=== PATIENT | male | born 1970 | race Two or more races ===

== ENCOUNTER 2023-06-15 07:00 | Emergency (ER) | payer BC ==
[~2023-06-15] VITALS: Ht 165.1 cm; Wt 80.3 kg
[2023-06-15 08:12] VITALS: BP 138/84; PULSE 70; RESP 18; TEMP 97.3; O2SAT 97
[2023-06-15 09:32] LABS: COVID19 ANTIGEN SOFIA FIA NEGATIVE (NEGATIVE)
[2023-06-15 09:33] LABS: Rapid Influenza A Negative (Negative); Rapid Influenza B Negative (Negative)
[2023-06-15] MEDS ORDERED: LORA10CA PO (09:44)
[2023-06-15] MEDS ORDERED: BENZ100C97 PO (09:44)
[2023-06-15] MEDS ORDERED: ACET500T58 PO (09:44)
== END 2023-06-15 09:44 | disposition home or self-care (01) ==
LOC: ER 07:00
DX: J06.9 Acute upper respiratory infection, unspecified (principal); B97.89 Other viral agents as the cause of diseases classified elsewhere; R07.89 Other chest pain; Z20.822 Contact with and (suspected) exposure to COVID-19
CPT/HCPCS: 36415; 71046; 87426; 87804

== ENCOUNTER 2024-02-23 05:37 | Emergency (ER) | payer BC, OTHER ==
[~2024-02-23] VITALS: Ht 165.1 cm; Wt 84.3 kg
[~2024-02-23 05:37] MED LIST: ACET500T58 PO; BENZ100C97 PO; LORA10CA PO
[2024-02-23] MEDS: MORPHINE SULFATE INJ 2 MG/ml SYRG IM ONE (08:19)
[2024-02-23] MEDS ORDERED: LIDO5DIS21 TOP (08:50)
[2024-02-23] MEDS ORDERED: NAPR-746 PO (08:50)
[2024-02-23 08:52] VITALS: BP 130/85; PULSE 60; RESP 18; TEMP 98.3; O2SAT 98
== END 2024-02-23 08:59 | disposition home or self-care (01) ==
LOC: ER 05:37
DX: M54.59 Other low back pain (principal); M79.632 Pain in left forearm; R10.9 Unspecified abdominal pain; Z79.899 Other long term (current) drug therapy; Z88.8 Allergy status to other drugs, medicaments and biological substances; Z79.1 Long term (current) use of non-steroidal anti-inflammatories (NSAID); V89.2XXA Person injured in unspecified motor-vehicle accident, traffic, initial encounter; Y93.89 Activity, other specified; Y92.89 Other specified places as the place of occurrence of the external cause; Y99.8 Other external cause status
CPT/HCPCS: 71045; 72100; 73090; 74176; 96372; 99285; J2270

== ENCOUNTER 2024-08-16 20:14 | Emergency (ER) | payer BC, OTHER ==
[2024-08-16 20:14] VITALS: BP 146/87; PULSE 73; RESP 20; O2SAT 98
[~2024-08-16 20:14] MED LIST changes: +LIDO5DIS21 TOP; +NAPR-746 PO
--- NOTE | 2024-08-16 20:52 | ED.PDOC ---
History of Present Illness HPI Comments This is a 54-year-old male who comes in with chief complaint of cough and congestion times approximately one week. The patient also states that the cough is somewhat productive with green sputum. Today the patient was feeling some tightness in his chest when he takes a deep breath. He denies any fever but is having some chills. Chief Complaint: Flu like Time Seen by MD: 20:42 Reviewed Notes: Nurses Notes, Medications, Allergies (Allergies listed above) Allergies: Coded Allergies: Cephalexin (Verified Allergy, Unknown, 06/15/23) Penicillins (Verified Allergy, Unknown, 08/16/24) Home Meds Active Scripts Azithromycin (Zithromax) 500 Mg Tab, 1 TAB PO DAILY, #5 TAB Prov:EVARISTO WEN MD 08/16/24 Lidocaine (LIDODERM 5% TOPICAL PATCH) 1 Patch Ph, 1 PATCH TOP DAILY for 30 Days, #30 PATCH 0 Refills Prov:RICO WEISS CONTINUOUS MINING MACHINE OPERATOR 02/23/24 Naproxen (Naproxen) 500 Mg Tab, 500 MG PO BIDPC for 10 Days, #20 TAB 0 Refills Prov:RICO WEISS CONTINUOUS MINING MACHINE OPERATOR 02/23/24 Acetaminophen (Acetaminophen) 500 Mg Tab, 500 MG PO Q4HP PRN, #30 TAB Prov:STEPHANIE TYSON PAC 06/15/23 Benzonatate (Benzonatate) 100 Mg Cap, 1 CAP PO TID, #20 CAP Prov:STEPHANIE TYSON PAC 06/15/23 Loratadine (Claritin) 10 Mg Cap, 10 MG PO DAILY for 14 Days, #14 CAP Prov:STEPHANIE TYSON PAC 06/15/23 Information Source: Patient Mode of Arrival: Ambulatory Severity: Moderate Timing: Days Duration: Since onset Prehospital treatment: None Associated signs and symptoms No nausea, vomiting or diarrhea but the patient was having a cough and congestion Past Medical History PAST MEDICAL HISTORY: Denies Surgical History (Other): Right shoulder surgery, right knee surgery, right carpal tunnel surgery Family History Family History: Family hx of DM, Family hx of heart mary, Family hx of HTN Social History Smoker: Non-Smoker Alcohol: Occasionally Drugs: Marijuana Lives In: Home Constitutional: denies: chills, diaphoresis, fatigue, fever, malaise, sweats, weakness, others EENTM: reports: others (Congestion); denies: blurred vision, double vision, ear bleeding, ear discharge, ear drainage, ear pain, ear ringing, eye pain, eye redness, hearing loss, mouth pain, mouth swelling, nasal discharge, nose bleeding, nose congestion, nose pain, photophobia, tearing, throat pain, throat swelling, voice changes Respiratory: reports: cough; denies: hemoptysis, orthopnea, SOB at rest, shortness of breath, SOB with excertion, stridor, wheezing, others Cardiovascular: denies: chest pain, dizzy spells, diaphoresis, Dyspnea on exertion, edema, irregular heart beat, left arm pain, lightheadedness, palpitations, PND, syncope, others Gastrointestinal: denies: abdomen distended, abdominal pain, blood streaked bowels, constipated, diarrhea, dysphagia, difficulty swallowing, hematemesis, melena, nausea, poor appetite, poor fluid intake, rectal bleeding, rectal pain, vomiting, others Genitourinary: denies: burning, dysuria, flank pain, frequency, hematuria, incontinence, penile discharge, penile sore, pain, testicle pain, testicle swelling, urgency, others Neurological: denies: dizziness, fainting, headache, left sided numbness, left sided weakness, numbness, paresthesia, pre-existing deficit, right sided numbness, right sided weakness, seizure, speech problems, tingling, tremors, weakness, others Musculoskeletal: denies: back pain, gout, joint pain, joint swelling, muscle pain, muscle stiffness, neck pain, others Integumetry: denies: bruises, change in color, change in hair/nails, dryness, laceration, lesions, lumps, rash, wounds, others Allergic/Immunocompromised: denies: Difficulty Healing, Frequent Infections, Hi ves, Itching, others Hematologic/Lymphatic: denies: anemia, blood clots, easy bleeding, easy bruising, swollen glands, others Endocrine: denies: excessive hunger, excessive sweating, excessive thirst, excessive urination, flushing, intolerance to cold, intolerance to heat, unexplained weight gain, unexplained weight loss, others Psychiatric: denies: anxiety, bipolar disorder, depression, hopeless, panic disorder, schizophrenia, sleepless, suicidal, others Physical Exam General Appearance: No Apparent Distress HEENT: Normal ENT Inspection, Pharynx Normal, TMs Normal Neck: Full Range of Motion, Non-Tender, Normal, Normal Inspection Respiratory: Chest Non-Tender, Lungs Clear, No Accessory Muscle Use, No Respiratory Distress, Normal Breath Sounds Cardiovascular: No Edema, No JVD, No Murmur, No Gallop, Normal Peripheral Pulses, Regular Rate/Rhythm Breast Exam: Deferred Gastrointestinal: No Organomegaly, Non Tender, No Pulsatile Mass, Normal Bowel Sounds, Soft Genitalia: Deferred Pelvic: Deferred Rectal: Deferred Extremities: No calf tenderness, Normal capillary refill, Normal inspection, Normal range of motion, Non-tender, No pedal edema Musculoskeletal : Apperance: Normal Neurologic: Alert, retail receiving clerk II-XII nml as Tested, No Motor Deficits, Normal Affect, Normal Mood, No Sensory Deficits Cerebellar Function: Normal Reflexes: Normal Skin: Dry, Normal Color, Warm Lymphatic: No Adenopathy Was a procedure done? Was a procedure done?: No Differential Dx Considerations may include: Bronchitis, pneumonia, influenza, COVID X-Ray, Labs, Meds, VS Vital Signs Date Time Temp Pulse Resp B/P (MAP) Pulse Ox O2 Delivery O2 Flow Rate FiO2 08/16/24 20:14 98.7 73 20 146/87 (106) 98 Lab Test 08/16/24 20:56 Range/Units Influenza Type A Antigen Negative Negative Influenza Type B Antigen Negative Negative SARS-CoV-2 Antigen (Rapid) Negative NEGATIVE The chest x-ray shows peribronchial cuffing The COVID test as well as influenza a and influenza B are negative The patient was being discharged on Zithromax Images Reviewed?: Images reviewed and evaluated by me Time of 1ST Reevaluation: 20:52 Reevaluation 1ST: Improved Patient Education/Counseling: Diagnosis, Treatment, Prognosis, Need For Follow Up Family Education/Counseling: No Family Present Departure 1 Departure Time of Disposition: 21:53 Impression: Primary Impression: Acute bronchitis Qualified Codes: J20.9 - Acute bronchitis, unspecified Disposition: HOME / SELF CARE / HOMELESS Condition: Fair e-Prescriptions Azithromycin (Zithromax) 500 Mg Tab 1 TAB PO DAILY, #5 TAB Prov: EVARISTO WEN MD 08/16/24 Discharged With: Self Critical Care Note Critical Care Time?: No Stability Stability form required: No Heart Score Heart Score: Heart Score Response (Comments) Value History N/A 0 EKG N/A 0 Age N/A 0 Risk Factors N/A 0 Troponin N/A 0 Total 0 EVARISTO WEN MD Aug 16, 2024 20:52
--- NOTE | 2024-08-16 21:11 | DVH ---
EXAM: XY CHEST TWO VIEWS ROUTINE CLINICAL HISTORY: cough TECHNIQUE: Frontal and lateral views of the chest WID: COMPARISON: XY CHEST TWO VIEWS ROUTINE on DOS: 06/15/23 FINDINGS: Lines and tubes: None Chest: The heart size and pulmonary vasculature is within normal limits. No pleural effusion, pneumothorax, or consolidation. The osseous structures are grossly intact. Multilevel thoracic spondylosis. IMPRESSION: No acute cardiopulmonary abnormality.
[2024-08-16 21:30] LABS: COVID19 ANTIGEN SOFIA FIA NEGATIVE (NEGATIVE); Rapid Influenza A Negative (Negative); Rapid Influenza B Negative (Negative)
[2024-08-16] MEDS ORDERED: AZIT500T PO (21:54)
== END 2024-08-16 23:51 | disposition home or self-care (01) ==
LOC: ER 20:14
DX: J20.9 Acute bronchitis, unspecified (principal); F12.90 Cannabis use, unspecified, uncomplicated; Z88.0 Allergy status to penicillin; Z88.1 Allergy status to other antibiotic agents; Z79.899 Other long term (current) drug therapy; Z98.890 Other specified postprocedural states; Z20.822 Contact with and (suspected) exposure to COVID-19
CPT/HCPCS: 36415; 71046; 87426; 87804

== ENCOUNTER 2024-11-03 19:38 | Inpatient (IN) | payer BC ==
[~2024-11-03] VITALS: Ht 165.1 cm; Wt 75.7 kg
[~2024-11-03 19:38] MED LIST changes: +AZIT500T PO
--- NOTE | 2024-11-03 20:19 | ED.PDOC ---
General HPI Comments 54-year-old male came to ER due to urinary issues. Patient states he has been having difficulty urinating/ voiding since yesterday. Noted to have dysuria, urinary dribbling, urinary frequency and suprapubic pain. Denies any fever, nausea, vomiting or gross hematuria Chief Complaint: Urinary Time Seen by MD: 20:18 Reviewed notes: Nurses Notes Allergies: Coded Allergies: Cephalexin (Verified Allergy, Unknown, 06/15/23) Penicillins (Verified Allergy, Unknown, 08/16/24) Home Meds Active Scripts Azithromycin (Zithromax) 500 Mg Tab, 1 TAB PO DAILY, #5 TAB Prov:EVARISTO WEN MD 08/16/24 Lidocaine (LIDODERM 5% TOPICAL PATCH) 1 Patch Ph, 1 PATCH TOP DAILY for 30 Days, #30 PATCH 0 Refills Prov:RICO WEISS NP 02/23/24 Naproxen (Naproxen) 500 Mg Tab, 500 MG PO BIDPC for 10 Days, #20 TAB 0 Refills Prov:RICO WEISS NP 02/23/24 Acetaminophen (Acetaminophen) 500 Mg Tab, 500 MG PO Q4HP PRN, #30 TAB Prov:STEPHANIE TYSON PAC 06/15/23 Benzonatate (Benzonatate) 100 Mg Cap, 1 CAP PO TID, #20 CAP Prov:STEPHANIE TYSON PAC 06/15/23 Loratadine (Claritin) 10 Mg Cap, 10 MG PO DAILY for 14 Days, #14 CAP Prov:STEPHANIE TYSON PAC 06/15/23 Information Source: Patient Mode of Arrival: Ambulatory Severity: Moderate Inability to void: Moderate Timing: Days Duration: Since onset Symptoms: Dysuria, Inability to void Location: Suprapubic associated signs and symptoms: Abdominal Pain, Dysuria, Frequency, Inability to Void Past Medical History PAST MEDICAL HISTORY: Denies Surgical History: Denies all surgeries Family History Family History: Family hx of DM, Family hx of heart mary, Family hx of HTN Social History Smoker: Non-Smoker Alcohol: Occasionally Drugs: Marijuana Lives In: Home Constitutional: denies: chills, diaphoresis, fatigue, fever, malaise, sweats, weakness, others EENTM: denies: blurred vision, double vision, ear bleeding, ear discharge, ear drainage, ear pain, ear ringing, eye pain, eye redness, hearing loss, mouth pain, mouth swelling, nasal discharge, nose bleeding, nose congestion, nose pain, photophobia, tearing, throat pain, throat swelling, voice changes, others Respiratory: denies: cough, hemoptysis, orthopnea, SOB at rest, shortness of breath, SOB with excertion, stridor, wheezing, others Cardiovascular: denies: chest pain, dizzy spells, diaphoresis, Dyspnea on exertion, edema, irregular heart beat, left arm pain, lightheadedness, palpitations, PND, syncope, others Gastrointestinal: reports: abdominal pain; denies: abdomen distended, blood streaked bowels, constipated, diarrhea, dysphagia, difficulty swallowing, hematemesis, melena, nausea, poor appetite, poor fluid intake, rectal bleeding, rectal pain, vomiting, others Genitourinary: reports: burning, dysuria, frequency, incontinence; denies: flank pain, hematuria, penile discharge, penile sore, pain, testicle pain, testicle swelling, urgency, others Neurological: denies: dizziness, fainting, headache, left sided numbness, left sided weakness, numbness, paresthesia, pre-existing deficit, right sided numbness, right sided weakness, seizure, speech problems, tingling, tremors, weakness, others Musculoskeletal: denies: back pain, gout, joint pain, joint swelling, muscle pain, muscle stiffness, neck pain, others Integumetry: denies: bruises, change in color, change in hair/nails, dryness, laceration, lesions, lumps, rash, wounds, others Allergic/Immunocompromised: denies: Difficulty Healing, Frequent Infections, Hives, Itching, others Hematologic/Lymphatic: denies: anemia, blood clots, easy bleeding, easy bruising, swollen glands, others Endocrine: denies: excessive hunger, excessive sweating, excessive thirst, excessive urination, flushing, intolerance to cold, intolerance to heat, u nexplained weight gain, unexplained weight loss, others Psychiatric: denies: anxiety, bipolar disorder, depression, hopeless, panic disorder, schizophrenia, sleepless, suicidal, others Physical Exam General Appearance: No Apparent Distress, Normal HEENT: Normal ENT Inspection, Pharynx Normal, TMs Normal Neck: Full Range of Motion, Non-Tender, Normal, Normal Inspection Respiratory: Chest Non-Tender, Lungs Clear, No Accessory Muscle Use, No Respiratory Distress, Normal Breath Sounds Cardiovascular: No Edema, No JVD, No Murmur, No Gallop, Normal Peripheral Pulses, Regular Rate/Rhythm Breast Exam: Deferred Gastrointestinal: No Organomegaly, No Pulsatile Mass, Normal Bowel Sounds, Soft, Suprapubic, Tenderness Genitalia: Deferred Pelvic: Deferred Rectal: Deferred Extremities: No calf tenderness, Normal capillary refill, Normal inspection, Normal range of motion, Non-tender, No pedal edema Musculoskeletal : Apperance: Normal Neurologic: Alert, coin purse assembler II-XII nml as Tested, No Motor Deficits, Normal Affect, Normal Mood, No Sensory Deficits Cerebellar Function: Normal Reflexes: Normal Skin: Dry, Normal Color, Warm Lymphatic: No Adenopathy Was a procedure done? Was a procedure done?: No Differential Diagnosis Kidney stone (Female): N/A Kidney stone (Male): Pyelonephritis, Renal failure, Strain, Urinary obstruction, Urolithiasis, Renal infarction, Urinary tract infection Penile/Scrotal: Urolithiasis, Urinary Retention Urinary Problem (Male): Bladder Outlet, Bladder Obstruction, Epididymitis, Prostatitis, Plelonephritis, Renal Failure, Urethritis, Urinary Retention, Urolithiasis, UTI X-Ray, Labs, Meds, VS Vital Signs Date Time Temp Pulse Resp B/P (MAP) Pulse Ox O2 Delivery O2 Flow Rate FiO2 11/03/24 21:56 99.3 98 20 136/85 (102) 99 99.3 11/03/24 20:22 99.3 98 20 136/85 (102) 99 99.3 Lab Test 11/03/24 22:13 11/03/24 21:43 11/03/24 20:20 Range/Units Troponin I High Sensitivity 5 </=54 ng/L White Blood Count 31.8 *H 4.4-10.8 10^3/uL Red Blood Count 4.65 4.5-5.90 10^6/uL Hemoglobin 14.8 13.5-17.5 g/dL Hematocrit 42.8 41.0-53.0 % Mean Corpuscular Volume 91.9 80.0-100.0 fL Mean Corpuscular Hemoglobin 31.7 28.0-32.0 pg Mean Corpuscular Hemoglobin Concent 34.5 32.0-36.0 g/dL Red Cell Distribution Width 13.8 11.8-14.3 % Platelet Count 265 140-450 10^3/uL Mean Platelet Volume 7.9 6.9-10.8 fL Neutrophils (%) (Auto) 37.0-80.0 % Lymphocytes (%) (Auto) 10.0-50.0 % Monocytes (%) (Auto) 0.0-12.0 % Basophils (%) (Auto) 0.0-2.0 % Neutrophils # (Auto) 1.6-8.6 10 ^3/uL Lymphocytes # (Auto) 0.4-5.4 10 ^3/uL Monocytes # (Auto) 0-1.3 10 ^3/uL Differential Total Cells Counted 100.0 100 Neutrophils % (Manual) 83 H 37.0-80.0 Band Neutrophils % (Manual) 8 Lymphocytes % (Manual) 9 L 10.0-50.0 Monocytes % (Manual) 0 0-12 Eosinophils % (Manual) 0 0-7 Basophils % (Manual) 0 0.0-2.0 Metamyelocytes % (manual) 0 Myelocytes % (Manual) 0 Promyelocytes % (Manual) 0 Blast Cells % (Manual) 0 Reactive Lymphocytes 0 Platelet Estimate Adequate Sodium Level 134 L 136-145 mmol/L Potassium Level 3.4 L 3.5-5.1 mmol/L Chloride Level 102 98-107 mmol/L Carbon Dioxide Level 25 20-31 mmol/L Anion Gap 7 5-15 Blood Urea Nitrogen 10 9-23 mg/dL Creatinine 1.03 0.700-1.30 mg/dL Glomerular Filtration Rate Calc 86 >90 mL/min BUN/Creatinine Ratio 9.7 L 10.0-20.0 Serum Glucose 148 H 74-106 mg/dL Calcium Level 10.4 8.7-10.4 mg/dL Urine Color Light-orange Yellow Urine Clarity Turbid H Clear Urine pH 5.5 5.0-9.0 Urine Specific Elizabeth 1.030 1.001-1.035 Urine Protein 1+ H Negative Urine Ketones Trace Negative Urine Blood 1+ H Negative /uL Urine Nitrite Negative Negative Urine Bilirubin Negative Negative Urine Urobilinogen 2 H Negative mg/dL Urine Leukocyte Esterase 3+ Negative /uL Urine RBC 24 0 - 3 /hpf Urine Microscopic WBC 638 H 0-3 /HPF Urine Squamous Epithelial Cells Few <5 /hpf Urine Bacteria Few H None Seen /hpf Urine Mucus Few None Seen Urine Yeast (Budding) Occasional None Seen /hpf Urine Glucose Normal Normal mg/dL Current Medications Medications (Trade) Dose Ordered Sig/Juma Route Start Time Stop Time Status Last Admin Sodium Chloride 1,850 ml @ 1,850 mls/hr ONCE ONCE IV 11/03/24 22:15 11/03/24 23:14 DC 11/03/24 22:49 Time of 1ST Reevaluation: 20:14 Reevaluation 1ST: Unchanged Time of 2ND Reevaluation: 21:22 Reevaluation 2ND: Unchanged Patient Education/Counseling: Diagnosis, Treatment, Prognosis, Need For Follow Up Family Education/Counseling: Prognosis, Need For Follow Up, No Family Present Additional Information Previous medical encounters reviewed: er visits 2022, 2023, 2024 The following tests were ordered, and results were reviewed by me: chem, cbc, ua Additional Information was gathered from interviewing the following independent historians: I discussed treatment and results with medical personnel and: Patient and Comprehensive systems review obtained and negative except for what is stated in the HPI. pt does have cystitis, but is not retaining urine. brown will be dc'd. i will order labs to look for evidence of leukocytosis and renal failure pt has evidence of uti with sepsis. he will be admitted for antibiotic and further evaluation Sepsis Sepsis Reasesment Focused Exam Sepsis focused exam: focus exam completed (good skin turgor, cap refill<2 secs, no hypotension), time: (2308) Departure 1 Departure Time of Disposition: 23:09 Impression: Primary Impression: UTI (urinary tract infection) Qualified Codes: N30.01 - Acute cystitis with hematuria Additional Impression: Sepsis Qualified Codes: A41.9 - Sepsis, unspecified organism Disposition: ADMITTED INPATIENT Admit to: Med Surg Condition: Stable Discharged With: Self, Relative Critical Care Note Critical Care Time?: Yes (55 min-critical care time only) Critical care comment: Due to concerns for patients condition deteriorating, the care required my highest level of attention and readiness to intervene. I assessed the patient, reviewed the medical records, ordered the appropriate tests and treatments, then reassessed for results and responsiveness. I communicated with medical personnel and consultants and formulated a plan of care. Total critical care time excludes any procedures Stability Stability form required: No Heart Score Heart Score: Heart Score Response (Comments) Value History N/A 0 EKG N/A 0 Age N/A 0 Risk Factors N/A 0 Troponin N/A 0 Total 0 I personally scribed for JENNIFER JACKSON MD ([email or web address]) on 11/03/24 at 20:19. Electronically submitted by Iker Lomas ([place]). I personally scribed for JENNIFER JACKSON MD ([email or web address]) on 11/03/24 at 23:20. Electronically submitted by Iker Lomas ([facility] JENNIFER JACKSON MD Nov 03, 2024 20:19 ARA PENALOZA MD Nov 03, 2024 21:23
[2024-11-03 20:54] LABS: Urine Bacteria FEW /hpf (None Seen); Urine Blood 1+ /uL (Negative); Urine Budding Yeast OCCASIONAL /hpf (None Seen); Urine Clarity Turbid (Clear); Urine Color Light-Orange (Yellow); Urine Mucus FEW (None Seen); Urine Protein, UAD 1+ (Negative); Urine Squamous Epithelial Cell FEW /hpf (<5); Urine Urobilinogen 2 mg/dL (Negative); Urine WBC 638 /HPF (0-3); Urine pH 5.5 (5.0-9.0)
[2024-11-03] MEDS ORDERED: cefTRIAXone 1GM/50ML D5W 50 ML IV ONE ×2 (21:30→23:00)
[2024-11-03 21:56] LABS: Hematocrit 42.8 % (41.0-53.0); Hemoglobin 14.8 g/dL (13.5-17.5); Mean Corpuscular Hemoglobin 31.7 pg (28.0-32.0); Mean Corpuscular Hgb Conc. 34.5 g/dL (32.0-36.0); Mean Corpuscular Volume 91.9 fL (80.0-100.0); Platelet Count (auto) 265 10^3/uL (140-450); Red Blood Cells 4.65 10^6/uL (4.5-5.90); Red Cell Distribution Width 13.8 % (11.8-14.3)
[2024-11-03 22:05] LABS: White Blood Cell 31.8 10^3/uL (4.4-10.8)
[2024-11-03 22:06] LABS: Basophils % (manual) 0 (0.0-2.0); Blast Cells 0; Chloride 102 mmol/L (98-107); Eosinophils % (manual) 0 (0-7); Metamyelocytes % 0; Monocytes % (manual) 0 (0-12); Myelocytes % 0; Promyelocytes % 0; Reactive Lymphocytes 0
[2024-11-03 22:07] LABS: Anion Gap 7 (5-15); Calcium 10.4 mg/dL (8.7-10.4); Carbon Dioxide 25 mmol/L (20-31)
[2024-11-03 22:09] LABS: Potassium 3.4 mmol/L (3.5-5.1); Sodium 134 mmol/L (136-145)
[2024-11-03 22:12] LABS: BUN/Creatinine Ratio 9.7 (10.0-20.0); Blood Urea Nitrogen 10 mg/dL (9-23)
[2024-11-03 22:21] LABS: Band Neutrophils % (manual) 8; Lymphocytes % (manual) 9 (10.0-50.0); Platelet Estimate Adequate
[2024-11-03 22:26] LABS: Glucose 148 mg/dL (74-106)
[2024-11-03] MEDS: SODIUM CHLORIDE 0.9% 1,000 ML IV ONE (22:49)
[2024-11-03] MEDS: SODIUM CHLORIDE 0.9% 1,850 ML IV ONE (22:49)
--- NOTE | 2024-11-03 23:16 | ED.PDOC ---
General HPI Comments 54-year-old male came to ER due to urinary issues. Patient states he has been having difficulty urinating/ voiding since yesterday. Noted to have dysuria, urinary dribbling, urinary frequency and suprapubic pain. Denies any fever, nausea, vomiting or gross hematuria Chief Complaint: Urinary Time Seen by MD: 21:10 Reviewed notes: Nurses Notes Allergies: Coded Allergies: Cephalexin (Verified Allergy, Unknown, 06/15/23) Penicillins (Verified Allergy, Unknown, 08/16/24) Home Meds Active Scripts Azithromycin (Zithromax) 500 Mg Tab, 1 TAB PO DAILY, #5 TAB Prov:EVARISTO WEN MD 08/16/24 Lidocaine (LIDODERM 5% TOPICAL PATCH) 1 Patch Ph, 1 PATCH TOP DAILY for 30 Days, #30 PATCH 0 Refills Prov:RICO WEISS NP 02/23/24 Naproxen (Naproxen) 500 Mg Tab, 500 MG PO BIDPC for 10 Days, #20 TAB 0 Refills Prov:RICO WEISS NP 02/23/24 Acetaminophen (Acetaminophen) 500 Mg Tab, 500 MG PO Q4HP PRN, #30 TAB Prov:STEPHANIE TYSON PAC 06/15/23 Benzonatate (Benzonatate) 100 Mg Cap, 1 CAP PO TID, #20 CAP Prov:STEPHANIE TYSON PAC 06/15/23 Loratadine (Claritin) 10 Mg Cap, 10 MG PO DAILY for 14 Days, #14 CAP Prov:STEPHANIE TYSON PAC 06/15/23 Information Source: Patient Mode of Arrival: Ambulatory Severity: Moderate Inability to void: Moderate Timing: Hours Duration: Since onset Onset: Spontaneous Symptoms: Dysuria, Inability to void Location: Suprapubic associated signs and symptoms: Abdominal Pain, Dysuria, Frequency, Inability to Void Past Medical History PAST MEDICAL HISTORY: Denies Surgical History: Denies all surgeries Family History Family History: Family hx of DM, Family hx of heart mary, Family hx of HTN Social History Smoker: Non-Smoker Alcohol: Occasionally Drugs: Marijuana Lives In: Home Constitutional: denies: chills, diaphoresis, fatigue, fever, malaise, sweats, weakness, others EENTM: denies: blurred vision, double vision, ear bleeding, ear discharge, ear drainage, ear pain, ear ringing, eye pain, eye redness, hearing loss, mouth pain, mouth swelling, nasal discharge, nose bleeding, nose congestion, nose pain, photophobia, tearing, throat pain, throat swelling, voice changes, others Respiratory: denies: cough, hemoptysis, orthopnea, SOB at rest, shortness of breath, SOB with excertion, stridor, wheezing, others Cardiovascular: denies: chest pain, dizzy spells, diaphoresis, Dyspnea on exertion, edema, irregular heart beat, left arm pain, lightheadedness, palpitations, PND, syncope, others Gastrointestinal: reports: abdominal pain; denies: abdomen distended, blood str eaked bowels, constipated, diarrhea, dysphagia, difficulty swallowing, hematemesis, melena, nausea, poor appetite, poor fluid intake, rectal bleeding, rectal pain, vomiting, others Genitourinary: reports: burning, dysuria, frequency, others (Inability to void); denies: flank pain, hematuria, incontinence, penile discharge, penile sore, pain, testicle pain, testicle swelling, urgency Neurological: denies: dizziness, fainting, headache, left sided numbness, left sided weakness, numbness, paresthesia, pre-existing deficit, right sided numbness, right sided weakness, seizure, speech problems, tingling, tremors, weakness, others Musculoskeletal: denies: back pain, gout, joint pain, joint swelling, muscle pain, muscle stiffness, neck pain, others Integumetry: denies: bruises, change in color, change in hair/nails, dryness, laceration, lesions, lumps, rash, wounds, others Allergic/Immunocompromised: denies: Difficulty Healing, Frequent Infections, Hives, Itching, others Hematologic/Lymphatic: denies: anemia, blood clots, easy bleeding, easy bruising, swollen glands, others Endocrine: denies: excessive hunger, excessive sweating, excessive thirst, excessive urination, flushing, intolerance to cold, intolerance to heat, unexplained weight gain, unexplained weight loss, others Psychiatric: denies: anxiety, bipolar disorder, depression, hopeless, panic disorder, schizophrenia, sleepless, suicidal, others Physical Exam General Appearance: No Apparent Distress, Normal HEENT: Normal ENT Inspection, Pharynx Normal, TMs Normal Neck: Full Range of Motion, Non-Tender, Normal, Normal Inspection Respiratory: Chest Non-Tender, Lungs Clear, No Accessory Muscle Use, No Respiratory Distress, Normal Breath Sounds Cardiovascular: No Edema, No JVD, No Murmur, No Gallop, Normal Peripheral Pu lses, Regular Rate/Rhythm Breast Exam: Deferred Gastrointestinal: No Organomegaly, Non Tender, No Pulsatile Mass, Normal Bowel Sounds, Soft Genitalia: Deferred Pelvic: Deferred Rectal: Deferred Extremities: No calf tenderness, Normal capillary refill, Normal inspection, Normal range of motion, Non-tender, No pedal edema Musculoskeletal : Apperance: Normal Neurologic: Alert, assembly lead person II-XII nml as Tested, No Motor Deficits, Normal Affect, Normal Mood, No Sensory Deficits Cerebellar Function: Normal Reflexes: Normal Skin: Dry, Normal Color, Warm Lymphatic: No Adenopathy Was a procedure done? Was a procedure done?: No Differential Diagnosis Kidney stone (Female): N/A Kidney stone (Male): Pyelonephritis, Renal failure, Strain, Urinary obstruction, Urolithiasis, Renal infarction, Urinary tract infection Urinary Problem (Male): Prostatitis, Renal Failure, Urethritis, Urinary Retention, Urolithiasis, UTI X-Ray, Labs, Meds, VS Vital Signs Date Time Temp Pulse Resp B/P (MAP) Pulse Ox O2 Delivery O2 Flow Rate FiO2 11/03/24 21:56 99.3 98 20 136/85 (102) 99 99.3 11/03/24 20:22 99.3 98 20 136/85 (102) 99 99.3 Lab Test 11/03/24 22:13 11/03/24 21:43 11/03/24 20:20 Range/Units Troponin I High Sensitivity 5 </=54 ng/L White Blood Count 31.8 *H 4.4-10.8 10^3/uL Red Blood Count 4.65 4.5-5.90 10^6/uL Hemoglobin 14.8 13.5-17.5 g/dL Hematocrit 42.8 41.0-53.0 % Mean Corpuscular Volume 91.9 80.0-100.0 fL Mean Corpuscular Hemoglobin 31.7 28.0-32.0 pg Mean Corpuscular Hemoglobin Concent 34.5 32.0-36.0 g/dL Red Cell Distribution Width 13.8 11.8-14.3 % Platelet Count 265 140-450 10^3/uL Mean Platelet Volume 7.9 6.9-10.8 fL Neutrophils (%) (Auto) 37.0-80.0 % Lymphocytes (%) (Auto) 10.0-50.0 % Monocytes (%) (Auto) 0.0-12.0 % Basophils (%) (Auto) 0.0-2.0 % Neutrophils # (Auto) 1.6-8.6 10 ^3/uL Lymphocytes # (Auto) 0.4-5.4 10 ^3/uL Monocytes # (Auto) 0-1.3 10 ^3/uL Differential Total Cells Counted 100.0 100 Neutrophils % (Manual) 83 H 37.0-80.0 Band Neutrophils % (Manual) 8 Lymphocytes % (Manual) 9 L 10.0-50.0 Monocytes % (Manual) 0 0-12 Eosinophils % (Manual) 0 0-7 Basophils % (Manual) 0 0.0-2.0 Metamyelocytes % (manual) 0 Myelocytes % (Manual) 0 Promyelocytes % (Manual) 0 Blast Cells % (Manual) 0 Reactive Lymphocytes 0 Platelet Estimate Adequate Sodium Level 134 L 136-145 mmol/L Potassium Level 3.4 L 3.5-5.1 mmol/L Chloride Level 102 98-107 mmol/L Carbon Dioxide Level 25 20-31 mmol/L Anion Gap 7 5-15 Blood Urea Nitrogen 10 9-23 mg/dL Creatinine 1.03 0.700-1.30 mg/dL Glomerular Filtration Rate Calc 86 >90 mL/min BUN/Creatinine Ratio 9.7 L 10.0-20.0 Serum Glucose 148 H 74-106 mg/dL Calcium Level 10.4 8.7-10.4 mg/dL Urine Color Light-orange Yellow Urine Clarity Turbid H Clear Urine pH 5.5 5.0-9.0 Urine Specific [place] 1.030 1.001-1.035 Urine Protein 1+ H Negative Urine Ketones Trace Negative Urine Blood 1+ H Negative /uL Urine Nitrite Negative Negative Urine Bilirubin Negative Negative Urine Urobilinogen 2 H Negative mg/dL Urine Leukocyte Esterase 3+ Negative /uL Urine RBC 24 0 - 3 /hpf Urine Microscopic WBC 638 H 0-3 /HPF Urine Squamous Epithelial Cells Few <5 /hpf Urine Bacteria Few H None Seen /hpf Urine Mucus Few None Seen Urine Yeast (Budding) Occasional None Seen /hpf Urine Glucose Normal Normal mg/dL Current Medications Medications (Trade) Dose Ordered Sig/Juma Route Start Time Stop Time Status Last Admin Sodium Chloride 1,850 ml @ 1,850 mls/hr ONCE ONCE IV 11/03/24 22:15 11/03/24 23:14 DC 11/03/24 22:49 Time of 1ST Reevaluation: 23:09 Reevaluation 1ST: Unchanged Time of 2ND Reevaluation: 21:22 Reevaluation 2ND: Unchanged Patient Education/Counseling: Diagnosis, Treatment Family Education/Counseling: No Family Present Additional Information Previous medical encounters reviewed: er visits 2022, 2023, 2024 The following tests were ordered, and results were reviewed by me: chem, cbc, ua Additional Information was gathered from interviewing the following independent historians: I discussed treatment and results with medical personnel and: Patient and Comprehensive systems review obtained and negative except for what is stated in the HPI. pt does have cystitis, but is not retaining urine. brown will be dc'd. i will order labs to look for evidence of leukocytosis and renal failure pt has evidence of uti with sepsis. he will be admitted for antibiotic and further evaluation Departure 1 Departure Time of Disposition: 23:09 Impression: Primary Impression: UTI (urinary tract infection) Qualified Codes: N30.01 - Acute cystitis with hematuria Additional Impression: Sepsis Qualified Codes: A41.9 - Sepsis, unspecified organism Disposition: ADMITTED INPATIENT Admit to: Med Surg Condition: Stable Discharged With: Self, Relative Critical Care Note Critical Care Time?: Yes (55 min-critical care time only) Critical care comment: Due to concerns for patients condition deteriorating, the care required my highest level of attention and readiness to intervene. I assessed the patient, reviewed the medical records, ordered the appropriate tests and treatments, then reassessed for results and responsiveness. I communicated with medical personnel and consultants and formulated a plan of care. Total critical care time excludes any procedures Stability Stability form required: No Heart Score Heart Score: Heart Score Response (Comments) Value History N/A 0 EKG N/A 0 Age N/A 0 Risk Factors N/A 0 Troponin N/A 0 Total 0 I personally scribed for ARA PENALOZA MD ([email or web address]) on 11/03/24 at 23:16. Electronically submitted by Iker Lomas ([facility]). I personally scribed for ARA PENALOZA MD ([facility] on 11/03/24 at 23:17. Electronically submitted by Iker Lomas ([email or web address]). I personally scribed for ARA PENALOZA MD ([facility]) on 11/03/24 at 23:18. Electronically submitted by Iker Lomas ([email or web address]). ARA PENALOZA MD Nov 03, 2024 23:16
[2024-11-03] MEDS: levoFLOXacin 500MG 100 ML IV ONE (23:33)
--- NOTE | 2024-11-03 23:42 | DVHHPRES ---
History of Present Illness Resident Creating Document: JOVI HAAS RESIDENT History of Present Illness 54 old male patient with no past medical history and surgical history of back surgery and shoulder surgery in January last year presented with complaints of not able to past urine completely and burning micturition since morning. She also mentioned associated hot flashes but denied any nausea vomiting abdominal pain. Patient denied any complaints of chest pain, shortness of breath, diarrhea, constipation, melena, hematochezia. pt was placed on brown catheter after which he was only able to void around 20 ml, later brown was DCed by the ER physician , pt is currently using urinal Review of Systems Review of Systems ROS Constitutional: No: Fever, Chills, Sweats, Weakness, Malaise, Other Eyes: No: Pain, Vision change, Conjunctivae inflammation, Eyelid inflammation, Other, Redness ENT: No: Ear pain, Ear discharge, Nose pain, Nose discharge, Nose congestion, Mouth pain, Mouth swelling, Throat pain, Throat swelling, Other Respiratory: No: Cough, Dry, Shortness of breath, SOB with excertion, Wheezing, Hemoptysis, Pleuritic Pain, Sputum, Wheezing, Other Cardiovascular: No: Chest Pain, Palpitations, Orthopnea, Paroxysmal Noc. Dyspnea, Edema, Lt Headedness, Other Gastrointestinal: No: Nausea, Vomiting, Abdominal Pain, Diarrhea, Constipation, Melena, Hematochezia, Other Musculoskeletal: No: other, neck pain, shoulder pain, arm pain, back pain, hand pain, leg pain, foot pain Neurological:; No: Weakness, Numbness, Incoordination, Change in speech, Confusion, Seizures Genitourinary : burning Micturition, urinary incontinence Allergies: Coded Allergies: Cephalexin (Verified Allergy, Unknown, 06/15/23) Penicillins (Verified Allergy, Unknown, 08/16/24) Exam Vital Signs Vital Signs Date Time Temp Pulse Resp B/P (MAP) Pulse Ox O2 Delivery O2 Flow Rate FiO2 11/03/24 21:56 99.3 98 20 136/85 (102) 99 99.3 Exam Examination General Appearance: Alert, Oriented X3, Cooperative, No acute distress HEENT: EOMI Respiratory: Clear to auscultation, Normal air movement Cardiovascular: Regular rate, Normal S1, Normal S2 Abdominal: Normal bowel sounds Extremities: No cyanosis, No edema, Normal pulses, No tenderness/swelling Skin: No rashes, No breakdown Neuro: Normal gait, Normal speech, Strength at 5/5 X4 ext, Normal tone, Sensation intact, Cranial nerves 3-12 NL, Reflexes 2+ Psych/Mental Status: Mental status NL, Mood NL Labs/Xrays Labs Test 11/03/24 22:13 11/03/24 21:43 11/03/24 20:20 Range/Units Troponin I High Sensitivity 5 </=54 ng/L White Blood Count 31.8 *H 4.4-10.8 10^3/uL Red Blood Count 4.65 4.5-5.90 10^6/uL Hemoglobin 14.8 13.5-17.5 g/dL Hematocrit 42.8 41.0-53.0 % Mean Corpuscular Volume 91.9 80.0-100.0 fL Mean Corpuscular Hemoglobin 31.7 28.0-32.0 pg Mean Corpuscular Hemoglobin Concent 34.5 32.0-36.0 g/dL Red Cell Distribution Width 13.8 11.8-14.3 % Platelet Count 265 140-450 10^3/uL Mean Platelet Volume 7.9 6.9-10.8 fL Neutrophils (%) (Auto) 37.0-80.0 % Lymphocytes (%) (Auto) 10.0-50.0 % Monocytes (%) (Auto) 0.0-12.0 % Basophils (%) (Auto) 0.0-2.0 % Neutrophils # (Auto) 1.6-8.6 10 ^3/uL Lymphocytes # (Auto) 0.4-5.4 10 ^3/uL Monocytes # (Auto) 0-1.3 10 ^3/uL Differential Total Cells Counted 100.0 100 Neutrophils % (Manual) 83 H 37.0-80.0 Band Neutrophils % (Manual) 8 Lymphocytes % (Manual) 9 L 10.0-50.0 Monocytes % (Manual) 0 0-12 Eosinophils % (Manual) 0 0-7 Basophils % (Manual) 0 0.0-2.0 Metamyelocytes % (manual) 0 Myelocytes % (Manual) 0 Promyelocytes % (Manual) 0 Blast Cells % (Manual) 0 Reactive Lymphocytes 0 Platelet Estimate Adequate Sodium Level 134 L 136-145 mmol/L Potassium Level 3.4 L 3.5-5.1 mmol/L Chloride Level 102 98-107 mmol/L Carbon Dioxide Level 25 20-31 mmol/L Anion Gap 7 5-15 Blood Urea Nitrogen 10 9-23 mg/dL Creatinine 1.03 0.700-1.30 mg/dL Glomerular Filtration Rate Calc 86 >90 mL/min BUN/Creatinine Ratio 9.7 L 10.0-20.0 Serum Glucose 148 H 74-106 mg/dL Calcium Level 10.4 8.7-10.4 mg/dL Urine Color Light-orange Yellow Urine Clarity Turbid H Clear Urine pH 5.5 5.0-9.0 Urine Specific [place] 1.030 1.001-1.035 Urine Protein 1+ H Negative Urine Ketones Trace Negative Urine Blood 1+ H Negative /uL Urine Nitrite Negative Negative Urine Bilirubin Negative Negative Urine Urobilinogen 2 H Negative mg/dL Urine Leukocyte Esterase 3+ Negative /uL Urine RBC 24 0 - 3 /hpf Urine Microscopic WBC 638 H 0-3 /HPF Urine Squamous Epithelial Cells Few <5 /hpf Urine Bacteria Few H None Seen /hpf Urine Mucus Few None Seen Urine Yeast (Budding) Occasional None Seen /hpf Urine Glucose Normal Normal mg/dL Assessment/Plan Assessment/Plan Assessment and plan #Urinary Incontinence likely due to UTI -brown catheter placed by the ER, later was removed -IV antibiotics #?sepsis due to [place] [address] -blood culture -lactic acid -urine culture -IV antibiotics #Complicated UTI -Urine culture -IV levofloxacin, pt is allergic to keflex #Hypokalemia -oral potassium effervescent -repeat labs CASE DISCUSSION WITH DR SALAS Plan discussed with: Patient, Other Date of Service: Nov 03, 2024 Billing Provider: ERICK SALAS MD Common Visit Codes: [id number] INP/OBS CARE (HIGH) JOVI HAAS RESIDENT Nov 03, 2024 23:42 ERICK SALAS MD Nov 04, 2024 09:57
[2024-11-04] VITALS: RESP 16; O2SAT 96
[2024-11-04] MEDS: POTASSIUM EFFERVESENT TAB 25 MEQ PO ONE (00:57)
[2024-11-04] MEDS: SODIUM CHLORIDE 0.9% 500 ML IV ONE (01:05)
--- NOTE | 2024-11-04 04:37 | DVH ---
Examination: CXR1 Clinical Indication: sepsis Comparison: None. Technique: Frontal radiograph of the chest was obtained. Findings: Inhomogeneous radiopacities in right lower lung, suggestive of patchy consolidation. No pleural effusion on either side in current study. There is no pneumothorax. The cardiomediastinal silhouette is within normal limits. No acute osseous abnormality is seen. Impression: Patchy consolidation in right lower lung. Electronically Signed 11/04/2024 04:36 Buck Wright
[2024-11-04] MEDS: VANCOMYCIN 1GM/200ML PM 200 ML IV ONE (06:00)
[2024-11-04] MEDS ORDERED: PIPERACILLIN-TAZO 4.5GM 100 ML IV SCH (06:00)
[2024-11-04 07:07] LABS: Alanine Aminotransferase 13 U/L (7-40); Albumin 4.5 g/dL (3.2-4.8); Alkaline Phosphatase 98 U/L (46-116); Anion Gap 6 (5-15); Aspartate Aminotransferase 14 U/L (13-40); BUN/Creatinine Ratio 10.8 (10.0-20.0); Bilirubin, Total 0.8 mg/dL (0.2-1.0); Calcium 9.6 mg/dL (8.7-10.4); Carbon Dioxide 23 mmol/L (20-31); Chloride 107 mmol/L (98-107); Magnesium 2.1 mg/dL (1.6-2.6); Potassium 3.7 mmol/L (3.5-5.1); Sodium 136 mmol/L (136-145); Total Protein 7.1 g/dL (5.7-8.2)
[2024-11-04 07:20] LABS: Blood Urea Nitrogen 9 mg/dL (9-23); Glucose 131 mg/dL (74-106)
[2024-11-04 07:29] LABS: Hematocrit 40.2 % (41.0-53.0); Hemoglobin 13.7 g/dL (13.5-17.5); Mean Corpuscular Hemoglobin 31.3 pg (28.0-32.0); Mean Corpuscular Hgb Conc. 34.1 g/dL (32.0-36.0); Platelet Count (auto) 239 10^3/uL (140-450); Red Blood Cells 4.37 10^6/uL (4.5-5.90); Red Cell Distribution Width 13.7 % (11.8-14.3)
[2024-11-04 07:36] LABS: Basophils % (manual) 0 (0.0-2.0); Blast Cells 0; Eosinophils % (manual) 0 (0-7); Metamyelocytes % 0; Myelocytes % 0; Promyelocytes % 0; Reactive Lymphocytes 0
[2024-11-04 08:33] LABS: Band Neutrophils % (manual) 5; Lymphocytes % (manual) 9 (10.0-50.0); Monocytes % (manual) 6 (0-12); Platelet Estimate Adequate
[2024-11-04 08:49] VITALS: PULSE 78; RESP 15; O2SAT 95
[2024-11-04 09:49] VITALS: BP 160/87; PULSE 90; RESP 18; TEMP 98.5; O2SAT 97
[2024-11-04] MEDS: amLODIPine BESYLATE 5 MG TAB PO SCH (10:00)
[2024-11-04] MEDS: levoFLOXacin 500MG 100 ML IV SCH (10:24)
[2024-11-04] MEDS: amLODIPine BESYLATE 5 MG TAB PO ONE (10:25)
[2024-11-04 13:36] VITALS: BP 133/73; PULSE 86; RESP 17; TEMP 100; O2SAT 95
[2024-11-04 17:00] VITALS: BP 140/68; PULSE 88; RESP 16; TEMP 98.9; O2SAT 97
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
[2024-11-04 21:00] VITALS: BP 128/70; PULSE 70; RESP 16; TEMP 98.1; O2SAT 96
[2024-11-05] VITALS (7 sets, daily range): BP systolic 121–140; BP diastolic 75–90; PULSE 61–84; RESP 16–18; TEMP 97.1–98.4; O2SAT 94–99
[2024-11-05 09:06] LABS: Urine Bacteria None Seen /hpf (None Seen)
[2024-11-05 09:25] LABS: Urine Blood TRACE /uL (Negative); Urine Clarity Clear (Clear); Urine Color Light-Yellow (Yellow); Urine Mucus FEW (None Seen); Urine Protein, UAD Negative (Negative); Urine Specific Gravity 1.013 (1.001-1.035); Urine Squamous Epithelial Cell FEW /hpf (<5); Urine Urobilinogen Normal (Negative); Urine WBC 24 /HPF (0-3)
[2024-11-05 09:51] LABS: Anion Gap 6 (5-15); Carbon Dioxide 26 mmol/L (20-31); Chloride 105 mmol/L (98-107); Sodium 137 mmol/L (136-145)
[2024-11-05 09:52] LABS: Basophils # (auto) 0.1 10 ^3/uL (0-0.2); Basophils % (auto) 0.5 % (0.0-2.0); Eosinophils # (auto) 0.1 10 ^3/uL (0-0.8); Eosinophils % (auto) 0.5 % (0.0-7.0); Hematocrit 41.7 % (41.0-53.0); Hemoglobin 14.2 g/dL (13.5-17.5); Lymphocytes # (auto) 2.2 10 ^3/uL (0.4-5.4); Lymphocytes % (auto) 13.4 % (10.0-50.0); Mean Corpuscular Hemoglobin 31.3 pg (28.0-32.0); Mean Corpuscular Hgb Conc. 34.1 g/dL (32.0-36.0); Mean Corpuscular Volume 91.8 fL (80.0-100.0); Monocytes # (auto) 1.1 10 ^3/uL (0-1.3); Monocytes % (auto) 6.4 % (0.0-12.0); Neutrophils # (auto) 13.3 10 ^3/uL (1.6-8.6); Neutrophils % (auto) 79.2 % (37.0-80.0); Platelet Count (auto) 282 10^3/uL (140-450); Red Blood Cells 4.54 10^6/uL (4.5-5.90); Red Cell Distribution Width 13.6 % (11.8-14.3); White Blood Cell 16.8 10^3/uL (4.4-10.8)
[2024-11-05 09:57] LABS: BUN/Creatinine Ratio 12.6 (10.0-20.0); Blood Urea Nitrogen 11 mg/dL (9-23)
[2024-11-05 10:39] LABS: Glucose 146 mg/dL (74-106); Potassium 3.4 mmol/L (3.5-5.1)
[2024-11-05] MEDS: TAMSULOSIN HYDROCHLORIDE 0.4 MG CAP PO ONE (10:56)
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
[2024-11-06 01:00] VITALS: BP 139/86; PULSE 79; RESP 17; TEMP 98.2; O2SAT 95
[2024-11-06 05:00] VITALS: BP 132/83; PULSE 69; RESP 17; TEMP 97.3; O2SAT 99
[2024-11-06 06:45] LABS: Basophils # (auto) 0 10 ^3/uL (0-0.2); Basophils % (auto) 0.5 % (0.0-2.0); Eosinophils # (auto) 0.2 10 ^3/uL (0-0.8); Eosinophils % (auto) 1.9 % (0.0-7.0); Hemoglobin 14.6 g/dL (13.5-17.5); Lymphocytes % (auto) 21.2 % (10.0-50.0); Mean Corpuscular Hgb Conc. 34.7 g/dL (32.0-36.0); Mean Corpuscular Volume 92.1 fL (80.0-100.0); Monocytes # (auto) 0.9 10 ^3/uL (0-1.3); Monocytes % (auto) 9.9 % (0.0-12.0); Neutrophils # (auto) 6.3 10 ^3/uL (1.6-8.6); Neutrophils % (auto) 66.5 % (37.0-80.0); Platelet Count (auto) 273 10^3/uL (140-450); Red Blood Cells 4.57 10^6/uL (4.5-5.90); Red Cell Distribution Width 13.6 % (11.8-14.3); White Blood Cell 9.5 10^3/uL (4.4-10.8)
[2024-11-06 08:00] VITALS: PULSE 74; RESP 18; O2SAT 96
[2024-11-06 09:00] VITALS: BP 131/86; PULSE 74; RESP 18; TEMP 98.1; O2SAT 96
[2024-11-06] MEDS ORDERED: LEVO750T40 PO (12:31)
[2024-11-06] MEDS ORDERED: TAMS-35 PO (12:31)
[2024-11-06] MEDS ORDERED: AML5T PO (12:31)
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
[2024-11-06 12:46] VITALS: BP 137/89; PULSE 78; RESP 16; TEMP 97.9; O2SAT 96
[2024-11-06 13:05] VITALS: BP 131/86
[2024-11-06] MEDS ORDERED: TAMSULOSIN HYDROCHLORIDE 0.4 MG CAP PO SCH (18:00)
[2024-11-07 10:07] LABS: PSA Free 3.93 ng/mL; Prostate Specific Antigen 25.7 ng/mL (0.0-4.0)
== END 2024-11-06 13:27 | disposition home or self-care (01) | DRG 871 ==
LOC: ER 19:38 → OVERFLOW 23:41 → WEST WING 11-04 18:36
PROVIDERS: ADMIT Student in an Organized Health Care Education/Training Program; ATTEND Student in an Organized Health Care Education/Training Program
DX: A41.9 Sepsis, unspecified organism (principal); J18.9 Pneumonia, unspecified organism; N30.01 Acute cystitis with hematuria; E87.6 Hypokalemia; N40.1 Benign prostatic hyperplasia with lower urinary tract symptoms; I10 Essential (primary) hypertension; Z88.1 Allergy status to other antibiotic agents; Z88.0 Allergy status to penicillin; Z82.49 Family history of ischemic heart disease and other diseases of the circulatory system; Z83.3 Family history of diabetes mellitus
CPT/HCPCS: 36415; 71045; 80048; 80053; 81001; 83036; 83605; 83735; 84154; 84484; 85007; 85025; 85027; 87040; 87086; 96365; 99291; G0378; J1956